=== PATIENT | female | born 1965 | race American Indian/Alaskan Native ===

== ENCOUNTER 2017-03-11 13:48 | Emergency (ER) | payer SELFPAY ==
--- NOTE | 2017-03-11 16:40 | Emergency Department Report ---
HPI - General Chief Complaint: Anxiety Time Seen by Provider: 03/11/17 16:18 - HPI HPI: This is a 52-year-old Afro-[place] female presents to the emergency department saying that earlier today she felt lightheaded, with some generalized weakness, felt as if she was going to "pass out" and had a hot feeling area she checked her blood pressure and found to be very elevated at 220/130. At this time she started feeling like she was having some palpitations and some shortness of breath. She took a taxi and came to the hospital be seen. Since presentation the patient says she feels a lot better and is back to baseline. She did not take anything for symptoms prior to presentation. She has a past medical history of HIV for which she says she takes medications but is not always compliant. She denies any chest pain, fever, nausea, vomiting, cough, back pain. No recent travel or sick contacts at home. She does not have a primary care physician. ED Past Medical Hx - Past Medical History Hx HIV: Yes - Surgical History Past Surgical History?: No - Social History Smoking Status: Never Smoker Substance Use Type: None - Medications Home Medications: Home Medications Medication Instructions Recorded Confirmed Last Taken Type amLODIPine [Norvasc] 5 mg PO DAILY #30 tab 03/11/17 Unknown Rx ED Review of Systems ROS: Stated complaint: ELEVATED BP/SOB Other details as noted in HPI Comment: All other systems reviewed and negative Constitutional: weakness. denies: chills, fever Eyes: denies: eye pain, eye discharge, vision change ENT: denies: ear pain, throat pain Respiratory: shortness of breath. denies: cough, wheezing Cardiovascular: palpitations. denies: chest pain Endocrine: intolerance to heat. denies: unexplained weight loss Gastrointestinal: denies: abdominal pain, nausea, diarrhea Genitourinary: denies: urgency, dysuria, discharge Musculoskeletal: denies: back pain, joint swelling, arthralgia Skin: denies: rash, lesions Neurological: denies: headache, numbness, paresthesias Physical Exam - Physical Exam Vital Signs: Vital Signs 03/11/17 03/11/17 13:57 16:35 Temperature 98.6 F Pulse Rate 114 H 86 Respiratory 20 12 Rate Blood Pressure 162/100 Blood Pressure 171/88 [Right] O2 Sat by Pulse 100 98 Oximetry Physical Exam: GENERAL: The patient is well-developed well-nourished. HEENT: Normocephalic. Atraumatic. Extraocular motions are intact. Patient has moist mucous membranes. Pupils equal reactive to light bilaterally. NECK: Supple. Trachea is midline. CHEST/LUNGS: Clear to auscultation. There is no respiratory distress noted. HEART/CARDIOVASCULAR: Regular. There is no tachycardia. There is no gallop rub or murmur. ABDOMEN: Abdomen is soft, nontender. Patient has normal bowel sounds. There is no abdominal distention. SKIN: Skin is warm and dry. No appreciable edema. NEURO: The patient is awake, alert, and oriented. The patient is cooperative. The patient has no focal neurologic deficits. The patient has normal speech. MUSCULOSKELETAL: There is no tenderness or deformity. There is no limitation range of motion. There is no evidence of acute injury. ED Course Vital Signs 03/11/17 03/11/17 13:57 16:35 Temperature 98.6 F Pulse Rate 114 H 86 Respiratory 20 12 Rate Blood Pressure 162/100 Blood Pressure 171/88 [Right] O2 Sat by Pulse 100 98 Oximetry ED Medical Decision Making - Lab Data Result diagrams: 03/11/17 17:26 03/11/17 17:26 - EKG Data EKG shows normal: sinus rhythm (with sinus arrhythmia), axis, intervals, QRS complexes, ST-T waves Rate: normal - EKG Data When compared to previous EKG there are: previous EKG unavailable Interpretation: normal EKG - Medical Decision Making 52-year-old female presents to the emergency department after having some lightheadedness/dizziness, palpitations, heat intolerance and some shortness of breath. However all the symptoms resolved upon presentation. She has been in the emergency department for multiple hours and reevaluated multiple times and has remained stable and asymptomatic. EKG shows sinus arrhythmia but otherwise there is no ST elevation VA or signs of ischemia. Labs are unremarkable including no signs of leukocytosis, electrolyte abnormalities, renal insufficiency, glucose abnormalities. She has a negative troponin and normal thyroid function. Patient did present with some elevated blood pressure and was given a dose of Catapres and her blood pressure came down to a normal range prior to discharge. She will be started on Norvasc. She was given a referral for primary care and cardiology. She will return to the ER with any worsening of her symptoms, development of chest pain, or any acute distress. - Differential Diagnosis hyperthyroidism, vasovagal, orthostatic hypotension, hypertensive urgency Critical Care Time: No Critical care attestation.: If time is entered above; I have spent that time in minutes in the direct care of this critically ill patient, excluding procedure time. ED Disposition Clinical Impression: Lightheaded, Palpitations Hypertension Qualifiers: Hypertension type: essential hypertension Qualified Code(s): I10 - Essential ( primary) hypertension Disposition: - TO HOME OR SELFCARE Is pt being admited?: No Condition: Stable Instructions: Palpitations (ED), Hypertension (ED), Lightheadedness (ED), Dizziness (ED) Additional Instructions: Please follow-up with a primary care physician in the next few days if possible. I have given you a referral for a local electrical assembly supervisor, Dr. Cantu, case she would like to follow up regarding palpitations. Return to the emergency department with any worsening of your symptoms or any acute distress. I have started you on a blood pressure medication called Norvasc that she be taken once daily, usually in the morning. Keep a blood pressure log. Try to stay away from caffeinated products. Prescriptions: amLODIPine [Norvasc] 5 mg PO DAILY #30 tab Referrals: KIRSTEN CATNU MD [Staff Physician] - 3-5 Days ED MONTIEL MD [Staff Physician] - 3-5 Days [facility] [Outside] - 3-5 Days Time of Disposition: 18:47
[2017-03-11] MEDS ORDERED: CATAPRES PO ONE (16:41)
[2017-03-11 18:03] LABS: Basophils % (Auto) 0.5 % (0.0-1.8); Eosinophils % (Auto) 0.1 % (0.0-4.3); Hematocrit 36.2 % (30.3-42.9); Mean Corpuscular HGB Conc 33 % (30-34); Mean Corpuscular Hemoglobin 28 pg (28-32); Mean Corpuscular Volume 85 fl (79-97); Platelet Count 203 K/mm3 (140-440); Red Blood Count 4.26 M/mm3 (3.65-5.03); Red Cell Distribution Width 16.1 % (13.2-15.2); White Blood Count 6.9 K/mm3 (4.5-11.0)
[2017-03-11 18:30] LABS: Anion Gap 17 mmol/L; BUN/Creatinine Ratio 12.85; Blood Urea Nitrogen 9 mg/dL (7-17); Calcium 9.4 mg/dL (8.4-10.2); Carbon Dioxide 27 mmol/L (22-30); Chloride 101.7 mmol/L (98-107); Glucose 94 mg/dL (65-100); Potassium 4.3 mmol/L (3.6-5.0); Sodium 141 mmol/L (137-145)
[2017-03-11 19:14] VITALS: BP 132/74
== END 2017-03-11 19:13 | disposition home or self-care (01) ==
LOC: ED 13:48
DX: I10 Essential (primary) hypertension (principal)
CPT/HCPCS: 36415; 80048; 84443; 84484; 85025; 93005; 93010; 99283